=== PATIENT | female | born 2000 | race Caucasian/White ===

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

== ENCOUNTER 2021-01-03 18:08 | Emergency (ER) | payer BC, OTHER ==
[2021-01-03 18:43] VITALS: BP 124/89; PULSE 87; TEMP 99; BMI 26.3
[2021-01-03] MEDS ORDERED: FLUORESCEIN NA 1 EA STRIP ONE (19:48)
[2021-01-03] MEDS ORDERED: TETRACAINE 0.5% OPHTH SOLN 2 ML BOTTLE ONE (19:48)
[2021-01-03] MEDS ORDERED: TETRACAINE 0.5% OPHTH SOLN 2 ML BOTTLE OD ONE (19:58)
[2021-01-03] MEDS ORDERED: FLUORESCEIN NA 1 EA STRIP OD ONE (19:59)
== END 2021-01-03 20:00 | disposition home or self-care (01) ==
LOC: FER 18:08
DX: T26.41XA Burn of right eye and adnexa, part unspecified, initial encounter (principal); X10.2XXA Contact with fats and cooking oils, initial encounter
CPT/HCPCS: 99283-25